=== PATIENT | female | born 1960 | race Caucasian/White ===

== ENCOUNTER 2017-01-01 14:05 | Emergency (ER) | payer OTHER ==
[~2017-01-01] VITALS: Ht 162.6 cm; Wt 80.6 kg
[2017-01-01 14:10] VITALS: BP 135/82; TEMP 36.7; Ht 162.6 cm; Wt 80.6 kg
[2017-01-01] MEDS ORDERED: OXYCODONE HCL IR 5 MG TAB (IMMEDIATE RELEASE) PO STA (14:26)
--- NOTE | 2017-01-01 14:29 | EMERGENCY ROOM VISIT NOTE ---
History Report prepared by Gingeribdolores: Magali Pabon Under the Supervision of: Dr. Sav Monge M.D. First contact with patient: 14:21 Chief Complaint: KNEEPAIN Stated Complaint: RIGHT KNEE PAIN/ACUTE History of Present Illness The patient is a 56 year old female who presents to the Emergency Room with complaints of worsening right knee pain. The patient states that she was driving yesterday and when she got out of her car her knee started to hurt. She notes swelling and pain with walking. The patient states that she iced it and took and Tylenol with minimal relief. Source of History: patient Onset: last night Position: knee (left) Timing: worsening Modifying Factors (Worsening): movement Note: pt notes swelling Review of Systems See HPI for pertinent positives & negatives. A total of 10 systems reviewed and were otherwise negative. Past Medical & Surgical Medical Problems: (1) No Known Active Medical Problems Family History No pertinent family history stated Social History Smoking Status: Never Smoker Marital Status: Current/Historical Medications Scheduled Lidocaine (Lidoderm Patch 5%), 1 PATCH TD DAILY Scheduled PRN Oxycodone Ir (Roxicodone Ir), 1-2 TAB PO Q4H PRN for Severe Pain Allergies Coded Allergies: No Known Allergies (Unverified , 01/01/17) Physical Exam Vital Signs Date Time Temp Pulse Resp B/P (MAP) Pulse Ox O2 Delivery O2 Flow Rate FiO2 01/01/17 15:50 85 18 100 Room Air 01/01/17 14:10 36.7 82 20 135/82 100 Room Air Physical Exam GENERAL: Patient is a healthy-appearing well-nourished female HEAD: Normocephalic atraumatic EYES: Ocular movements intact pupils equal and react to light OROPHARYNX mucous membranes are moist no exudates present no erythema or edema present NECK: Supple no nuchal rigidity CHEST: Good equal expansion LUNGS: Clear and equal to auscultation CARDIAC: Normal S1 and S2 ABDOMEN: Soft nontender no guarding BACK: No CVA tenderness EXTREMITIES: No pain with varus and valgus stress, good ROM of right knee, good ROM of hip and ankle, right foot neurovascular intact. NEURO: Patient is following commands and answering questions appropriately. Alert and oriented x3 Cranial Nerves 2-12 grossly intact Medical Decision & Procedures ER Provider Diagnostic Interpretation: Radiology results as stated below per my review and radiologist interpretation: RIGHT KNEE 2 VIEWS DISCUSSION: No fractures or dislocations are visualized. There is mild narrowing medial joint compartment. There is a trace joint effusion. No destructive lesions are evident. IMPRESSION: 1. No acute fracture 2. Mild osteoarthritic changes 3. Trace joint effusion Electronically signed by: Sheng Jhaveri M.D. Medications Administered Medications (Trade) Dose Ordered Sig/Chiara Route Start Time Stop Time Status Last Admin Dose Admin Oxycodone HCl (Roxicodone Immediate Rel Tab) 10 mg NOW STAT PO 01/01/17 14:26 01/01/17 14:29 DC 01/01/17 14:35 10 MG Lidocaine (Lidoderm Patch 5%) 1 patch NOW STAT TD 01/01/17 14:39 01/01/17 14:40 DC 01/01/17 15:05 1 PATCH Ondansetron HCl (Zofran Odt) 4 mg ONE STAT PO 01/01/17 15:26 01/01/17 15:27 DC 01/01/17 15:28 4 MG Ondansetron HCl (ZOFRAN ODT 4MG Home Pack) 1 homepack UD STAT PO 01/01/17 15:26 01/01/17 15:27 DC 01/01/17 15:31 1 HOMEPACK ED Course 1422: Past medical records reviewed. The patient was evaluated in room D1A. A complete history and physical examination was performed. 1426: Oxycodone HCl 10 mg PO. 1439: Lidocaine 1 patch TD. 1513: Upon reexamination the patient is resting. I discussed results and treatment plan with the patient. She verbalizes agreement and understanding. The patient is ready for discharge. Medical Decision Differential diagnosis: Etiologies such as fracture, dislocation, neurovascular compromise, compartment syndrome, soft tissue injury, as well as others were entertained. This is a 56 year old female that presents to the emergency department complaining of Rt knee pain after tweaking her knee after getting out of a car. She was given Oxy ir for the pain as well as a lidoderm patch. The patients xray demonstrates a knee effusion. I suspect based on the story and physical exam that the patient may have torn her meniscus. She will be placed in a knee immobilizer and crutches pending follow up with orthopaedics. Unfortunately the patient is from [place] and this may interfere with her follow up. Because of this I contacted Case management who met with the patient in an effort to get close follow up with orthopaedics. I will place the patient on lidoderm patches and Oxy as a f/u pending follow up with ortho. Medication Reconcilliation Current Medication List: was personally reviewed by me Blood Pressure Screening Patient's blood pressure: Elevated blood pressure Blood pressure disposition: Referred to PCP Impression Primary Impression: Knee pain, right Scribe Attestation The scribe's documentation has been prepared under my direction and personally reviewed by me in its entirety. I confirm that the note above accurately reflects all work, treatment, procedures, and medical decision making performed by me. Departure Information Dispostion Home / Self-Care Prescriptions Lidocaine (Lidoderm Patch 5%) 1 Ea Tdsy 1 PATCH TD DAILY, #30 PATCH Prov: Sav Monge MD 01/01/17 Oxycodone Ir (Roxicodone Ir) 5 Mg Tab 1-2 TAB PO Q4H Y for Severe Pain, #14 TAB Prov: Sav Monge MD 01/01/17 Referrals No Doctor, Assigned (PCP) Forms HOME CARE DOCUMENTATION FORM, IMPORTANT VISIT INFORMATION Patient Instructions ED Immobilizer Knee, ED Meniscal Injury Knee Poss, ED RICE, Hypertension Dc, My [facility] Additional Instructions Follow up with Dr Brown's office You were found to have an elevated blood pressure today (>120 sytolic or >90 diastolic). Per medicare guidelines, you need to follow up with this blood pressure screening with your Primary Care Physician (PCP). For a new PCP call [phone]. You received narcotic or benzodiazepene medication while in the emergency room today. This is an addictive medication that may cause drowziness as well as constipation. Do not drive, operate heavy machinery, or drink alcohol under the influence of this medication. Take 1000 mg Tylenol every 6 hours Take Oxy IR for breakthrough pain Apply Lidoderm patch daily You have been examined and treated today on an emergency basis only. This is not a substitute for, or an effort to provide, complete comprehensive medical care. It is impossible to recognize and treat all injuries or illnesses in a single emergency department visit. It is therefore important that you follow up closely with your PCP. Call as soon as possible for an appointment. Thank you for your time and consideration. I look forward to speaking with you again soon. Please don't hesitate to call us if you have any questions. Problem Qualifiers Primary Impression: Knee pain, right Chronicity: acute Qualified Codes: M25.561 - Pain in right knee
[2017-01-01] MEDS ORDERED: LIDODERM (LIDOCAINE) PATCH 5% TD STA (14:39)
--- NOTE | 2017-01-01 14:54 | DIAGNOSTIC IMAGING REPORT ---
RIGHT KNEE 2 VIEWS CLINICAL HISTORY: Right knee pain COMPARISON: None. DISCUSSION: No fractures or dislocations are visualized. There is mild narrowing medial joint compartment. There is a trace joint effusion. No destructive lesions are evident. IMPRESSION: 1. No acute fracture 2. Mild osteoarthritic changes 3. Trace joint effusion Electronically signed by: Sheng Jhaveri M.D. 01/01/2017 2:52 PM Dictated Date/Time: 01/01/2017 2:52 PM
[2017-01-01] MEDS ORDERED: NF656 TD (15:05)
[2017-01-01] MEDS ORDERED: OXYC1TAB3 PO (15:05)
[2017-01-01] MEDS ORDERED: ONDANSETRON INJ 2 MG/ML 2 ML VIAL IV STA (15:18)
[2017-01-01] MEDS ORDERED: ONDANSETRON 4MG OD TAB ONE (15:26)
[2017-01-01] MEDS ORDERED: ONDANSETRON HOME PACK 4MG OD TAB PO STA (15:26)
[2017-01-01] MEDS ORDERED: ONDANSETRON 4MG OD TAB PO STA (15:26)
[2017-01-01 15:50] VITALS: PULSE 85; O2SAT 100
== END 2017-01-01 15:50 | disposition home or self-care (01) ==
LOC: C.EDB 14:08 → C.EDD 15:50
DX: M25.561 Pain in right knee (principal)

== ENCOUNTER → 2017-03-04 | Outpatient (CLI) | payer OTHER ==
[~2017-03-04] MED LIST: NF656 TD; OXYC1TAB3 PO
--- NOTE | 2017-04-16 12:56 | CODING QUERY NO DIAGNOSIS ---
: 1960 TREATMENT RENDERED WITHOUT A DIAGNOSIS To promote full compliance with coding requirements relating to patient care, physician participation is requested in all cases of shrub planter uncertainty. Please assist us with providing a diagnosis/symptom for the test(s) below: A diagnosis/symptom was not documented on your order. A valid diagnosis/symptom is required to bill all insurances. Please remember that we are unable to code a diagnosis of rule out, probable, possible, questionable, or suspected. Tests that require a diagnosis: DOS: 03/04/2017 * Synovial fluid, cell cnt/diff DIAGNOSIS: * Synovial fluid crystals DIAGNOSIS: * Joint fluid cult & gram stain DIAGNOSIS: Provider Signature: Date: Thank you Grace Batista Health Information Management Once completed, please kindly fax back to [phone] For questions please call [phone]
== END | disposition home or self-care (01) ==
LOC: C.LABSPEC 16:15
PROVIDERS: ATTEND Orthopaedic Surgery
DX: M25.462 Effusion, left knee (principal); M25.561 Pain in right knee